=== PATIENT | female | born 1980 | race Caucasian/White ===

== ENCOUNTER 2020-11-03 10:36 | Emergency (ER) | payer BC ==
[~2020-11-03] VITALS: Ht 167.6 cm; Wt 127.0 kg
== END 2020-11-03 15:13 | disposition home or self-care (01) ==
LOC: ED 10:36
DX: S00.93XA Contusion of unspecified part of head, initial encounter (principal); F17.200 Nicotine dependence, unspecified, uncomplicated; W00.2XXA Other fall from one level to another due to ice and snow, initial encounter; Y93.89 Activity, other specified; Y92.89 Other specified places as the place of occurrence of the external cause; Y99.8 Other external cause status

== ENCOUNTER 2023-12-31 07:00 | Emergency (ER) | payer OTHER ==
[~2023-12-31] VITALS: Ht 167.6 cm; Wt 127.0 kg
[2023-12-31] MEDS ORDERED: SODIUM CHLORIDE 0.9% 1,000 ML IV ONE (07:35)
[2023-12-31] MEDS ORDERED: MORPHINE Sulfate 2 MG/ML SYR IV ONE (07:35)
[2023-12-31] MEDS ORDERED: Ketorolac Tromethamine 15 MG/ML VIAL IV ONE (07:35)
[2023-12-31 07:51] LABS: BASO % 0.2 % (0.0-1.0); HEMATOCRIT 39.8 % (37.0-47.0); LYMPH # 0.9 10*3/uL (1.3-4.4); LYMPH % 6.7 % (27.0-41.0); MEAN CELL VOLUME 84.5 fl (81.0-99.0); MEAN CORPUSCULAR HGB 27.6 pg (27.0-31.0); MEAN CORPUSCULAR HGB CONC 32.7 g/dl (33.0-37.0); MEAN PLATELET VOLUME 9.1 fl (9.6-12.3); MONO # 0.8 10*3/uL (0.1-1.0); MONO % 5.7 % (3.0-9.0); NEUT # 12.1 10*3/uL (2.3-7.9); PLATELET COUNT AUTOMATED 212 10*3/uL (130-400); RED BLOOD COUNT 4.71 10*6/uL (4.10-5.10); RED CELL DISTRI WIDTH 12.9 % (0-14.5)
[2023-12-31 08:11] LABS: ALKALINE PHOSPHATASE 57 U/L (46-116); BUN 9 mg/dl (9-23); CHLORIDE 105 mmol/L (98-107); POTASSIUM 3.8 mmol/L (3.4-5.1); SGPT/ALT 11 U/L (5-49); TOTAL PROTEIN 7.2 gm/dL (6.0-8.0)
[2023-12-31 08:12] LABS: BILIRUBIN Negative (Negative); BLOOD Negative (Negative); CLARITY Cloudy (Clear); COLOR Yellow (Yellow); GLUCOSE Negative (Negative); KETONE Trace (Negative); LEUKO ESTERASE Negative (Negative); NITRITE Negative (Negative); SPECIFIC GRAVITY >= 1.030 (1.001-1.030)
[2023-12-31 08:25] LABS: BACTERIA 2+; EPITHELIAL CELLS 21-30; MUCOUS 1+
[2023-12-31] MEDS ORDERED: Ceftriaxone Sodium 1 GM/10 ML SYR IV ONE (08:30)
[2023-12-31] MEDS ORDERED: MELOXICAM15 MG PO (08:34)
[2023-12-31] MEDS ORDERED: SEPTDS PO (08:34)
== END 2023-12-31 09:29 | disposition home or self-care (01) ==
LOC: ED 07:00
PROVIDERS: Emergency Medicine; Internal Medicine
DX: N39.0 Urinary tract infection, site not specified (principal); R50.9 Fever, unspecified; Z90.49 Acquired absence of other specified parts of digestive tract